=== PATIENT | female | born 1975 | race Caucasian/White ===

== ENCOUNTER 2020-04-30 08:45 | Emergency (ER) | payer OTHER ==
[2020-04-30] MEDS ORDERED: FLUORESCEIN NA 1 EA STRIP OS ONE (08:59)
[2020-04-30] MEDS ORDERED: TETRACAINE 0.5% HCL 0.6ML DROPPER.BOTTLE OS ONE (08:59)
--- NOTE | 2020-04-30 08:59 | PDOC ---
History of Present Illness - General Chief Complaint: Injury Stated Complaint: LEFT EYE INJURY Time Seen by Provider: 04/30/20 08:47 - History of Present Illness Initial Comments: 04/30/20 09:14 45 F with no PMH presents to ED with L eye pain. Pt states that she was poked in the eye last night by a plastic branch from an artificial tree. She denies changes in vision. Endorses foreign body sensation "like glass" in her eye. Pt has been applying ice and taking aleve with no relief. Pt does not wear contacts or corrective lenses. Past History - Medical History Allergies/Adverse Reactions: Allergies Allergy/AdvReac Type Severity Reaction Status Date / Time No Known Allergies Allergy Verified 04/30/20 09:11 Home Medications: Ambulatory Orders Polymyxin B Sulfate/Tmp [Polytrim Opthalmic Solution -] 1 drop OS Q3H #1 drops 04/30/20 Review of Systems - Review of Systems Comments:: 04/30/20 09:15 "GENERAL/CONSTITUTIONAL: No fever or chills. No weakness. HEAD, EYES, EARS, NOSE AND THROAT: + L eye pain, No change in vision. No ear pain or discharge. No sore throat. CARDIOVASCULAR: No chest pain, no shortness of breath, no loss of consciousness RESPIRATORY: No cough, wheezing, or hemoptysis. GASTROINTESTINAL: No nausea, vomiting, diarrhea or constipation. GENITOURINARY: No dysuria, frequency, or change in urination. MUSCULOSKELETAL: No joint or muscle swelling or pain. No neck or back pain. SKIN: No rash NEUROLOGIC: No vertigo, no change in strength/sensation. ENDOCRINE: No increased thirst. No abnormal weight change. HEMATOLOGIC/LYMPHATIC: No anemia, easy bleeding, or history of blood clots. ALLERGIC/IMMUNOLOGIC: No hives or skin allergy. *Physical Exam - Physical Exam 04/30/20 09:16 "GENERAL: Awake, alert, and fully oriented, in no acute distress. HEAD: No signs of trauma EYES: Visual acuity 20/20 OU, + mild conjunctival injection OS, PERRLA, EOMI, sclera anicteric ENT: Auricles normal inspection, hearing grossly normal, nares patent, oropharynx clear without exudates. Moist mucosa NECK: Nontender, no stepoffs, Normal ROM, supple, no lymphadenopathy, JVD, or masses LUNGS: Breath sounds equal, clear to auscultation bilaterally. No wheezes, and no crackles HEART: Regular rate and rhythm, normal S1 and S2, no murmurs, rubs or gallops ABDOMEN: Soft, nontender, normoactive bowel sounds. No guarding, no rebound. No masses EXTREMITIES: Normal range of motion, no edema. No clubbing or cyanosis. No cords, erythema, or tenderness NEUROLOGICAL: Cranial nerves II through XII intact. 5/5 strength and sensation in all extremities, Normal speech, normal gait, normal cerebellar function SKIN: Warm, Dry, normal turgor, no rashes or lesions noted. Medical Decision Making - Medical Decision Making 04/30/20 09:16 45 F with L eye pain and FB sensation after getting poked yesterday. - Fluorescein stain reveals corneal abrasion, no FB visualized - Polytrim drops - F/u ophtho Pt is well appearing, with normal vitals. Clinically stable for DC at this time. I discussed the physical exam findings, ancillary test results and final diagnoses with the patient. I answered all of the patient's questions. The patient was satisfied with the care received and felt comfortable with the discharge plan and treatment plan. The patient agrees to follow up with the primary care physician within 24-72 hours. Discharge - Discharge Information Problems reviewed: Yes Clinical Impression/Diagnosis: Corneal abrasion, Eye injury Disposition: HOME - Additional Discharge Information Prescriptions: Polymyxin B Sulfate/Tmp [Polytrim Opthalmic Solution -] 1 drop OS Q3H #1 drops - Follow up/Referral Referrals: Abisai Lujan MD [Staff Physician] - - Patient Discharge Instructions Patient Printed Discharge Instructions: DI for Corneal Abrasion Additional Instructions: You have a corneal abrasion. This will heal on its own over time. Apply the antibiotic drops every 3 hours to prevent infection. It may help to wear sunglasses, as bright lights may worsen pain. If you experience increasing pain, blurred vision, abnormal discharge, or any other concerning symptoms, return to the ER immediately. Otherwise, follow up with an bacteriologist dairy within 1 week for further evaluation. Call the number provided to make an appointment. - Post Discharge Activity
[2020-04-30 09:00] VITALS: BP 135/88; PULSE 75; TEMP 98.3; BMI 25.0
[2020-04-30] MEDS ORDERED: TETRACAINE 0.5% OPHTH SOLN 2 ML BOTTLE ONE (09:11)
[2020-04-30] MEDS ORDERED: FLUORESCEIN NA 1 EA STRIP ONE (09:11)
== END 2020-04-30 09:16 | disposition home or self-care (01) ==
LOC: FER 08:45
DX: S05.02XA Injury of conjunctiva and corneal abrasion without foreign body, left eye, initial encounter (principal); S05.92XA Unspecified injury of left eye and orbit, initial encounter
CPT/HCPCS: 99283-25